=== PATIENT | female | born 1975 | race Caucasian/White ===

== ENCOUNTER 2020-08-07 09:48 | Emergency (ER) | payer OTHER, MEDICAID, SELFPAY ==
[2020-08-07 10:02] VITALS: BP 110/61; PULSE 97; RESP 20; TEMP 36; O2SAT 100; BMI 32.3
--- NOTE | 2020-08-07 10:56 | CT_ITS ---
EXAMINATION: CT ABDOMEN AND PELVIS WITH CONTRAST CLINICAL INFORMATION: 45-year-old female presenting with umbilical/lower abdominal pain. Patient is status post Tummy tuck in [place] 2 weeks ago. COMPARISON: Abdominal MRI 04/11/2014, abdominal ultrasound 04/10/[address] abdomen pelvis 04/07/2014 TECHNIQUE: Multidetector volumetric images were obtained from the superior aspect of the liver through the pubic symphysis following administration 85 mL of Omnipaque 350 intravenous contrast. Sagittal and coronal reformatted images were obtained on the technologist's workstation. Oral contrast: No This CT examination was performed using dose optimization techniques as appropriate, variously including the following: *Automated exposure control *Adjustment of mA and/or kV according to patient size (this includes techniques or standardized protocols for targeted exams where dose is matched to indication/reason for exam; i.e. extremities or head) *Use of iterative reconstruction technique DLP: 783 mGy-cm FINDINGS: Visualized lung bases are well aerated. The liver demonstrates normal size, contour and attenuation. The gallbladder is surgically absent. There is mild intrahepatic biliary ductal dilatation. There is dilatation of the common bile duct measuring up to 1 cm which has been demonstrated on prior imaging from 2013. The pancreas, spleen and adrenal glands are unremarkable. Symmetrically enhancing kidneys. There is no hydronephrosis of either kidney. Normal caliber loops of small and large bowel. Normal appendix. There is diffuse anasarca/subcutaneous edema throughout the central and bilateral abdominal subcutaneous tissues consistent with history of recent tummy tuck procedure. Above the level of the umbilicus there is a well-defined fluid collection containing a small focus of air, measuring 5.5 x 1.5 x 3.75 cm (image 34/89, series 6). There is a second well-defined subcutaneous fluid collection along the right flank which measures approximately 3.8 x 1.9 x 2.5 cm (image 42). A third fairly well-defined lucent collection is noted within the left flank which measures approximately 5.5 x 2.5 x 3.5 cm (image 41). Nonaneurysmal abdominal aorta. The bladder is well-distended and normal in appearance. Unremarkable CT appearance of the uterus. Small amount of free pelvic fluid versus approximately 3 cm cyst of the right adnexa. No inguinal lymphadenopathy. Mild degenerative changes of the spine. CT/CT abdomen pelvis w con IMPRESSION: 1. There are 3 discrete subcutaneous fluid collections as detailed above. These may represent postoperative seromas or developing abscesses. Surgical consultation recommended. 2. Chronic appearing intrahepatic and extrahepatic biliary duct dilatation status post cholecystectomy. 3. Small amount of free pelvic fluid versus approximately 3 cm cyst of the right adnexa.
--- NOTE | 2020-08-07 11:01 | CT_ITS ---
EXAMINATION: CT RIGHT ELBOW WITHOUT CONTRAST CLINICAL INFORMATION: Status post fat removal from left arm with worsening pain COMPARISON: None TECHNIQUE: Multidetector CT imaging of the right elbow was performed without the use of intravenous contrast. Coronal and sagittal reformats are reviewed. This CT examination was performed using dose optimization techniques as appropriate, variously including the following: *Automated exposure control *Adjustment of mA and/or kV according to patient size (this includes techniques or standardized protocols for targeted exams where dose is matched to indication/reason for exam; i.e. extremities or head) *Use of iterative reconstruction technique DLP: 783 mGy-cm FINDINGS: No acute fracture or dislocation. Humeral-ulnar, radiocapitellar and radioulnar alignment is maintained. No cortical destruction, periosteal reaction or intramedullary lucency to suggest osteomyelitis. There is skin thickening and subcutaneous fat stranding along the posteromedial upper arm and medial to the medial humeral epicondyles as well as posterior to the elbow joint. No fluid collections. CT/CT elbow RT w con IMPRESSION: * No acute osseous abnormalities. * Mild skin thickening and subcutaneous fat stranding posteromedial to the upper arm and posterior to the elbow. * No drainable collections.
[2020-08-07] MEDS: 0.9 % Sodium Chloride 1,000 ML 999 ML IVCONT (12:20)
[2020-08-07 12:21] VITALS: RESP 16
[2020-08-07 12:21] LABS: Basophils Percent Auto 0.2 % (0-2); Eosinophils Percent Auto 0.6 % (0-4); Hematocrit 26.7 % (37-47); Hemoglobin 8.4 g/dl (12.0-16.0); Imm Gran Abs Auto 0.03 X10*3/uL (0.00-0.03); Imm Gran Pct Auto 0.5 % (0.0-0.4); Lymphocytes Absolute Auto 1.5 X10*3/uL (1.2-4.9); Lymphocytes Percent Auto 23.4 % (20-40); Mean Corpuscular HGB Conc 31.5 g/dl (31.0-35.0); Mean Corpuscular Hemoglobin 25.8 pg (27.0-33.0); Mean Corpuscular Volume 81.9 fL (80-98); Mean Platelet Volume 11.5 fL (9.4-12.3); Monocytes Absolute Auto 0.4 X10*3/uL (0.1-1.2); Monocytes Percent Auto 6.1 % (2-11); Neutrophils Absolute Auto 4.3 X10*3/uL (2.0-8.3); Neutrophils Percent Auto 69.2 % (45-73); Platelet Count 295 X10*3/uL (160-400); Red Blood Count 3.26 X10*6/uL (4.20-5.50); Red Cell Distribution Width 14.5 % (11.0-16.0); White Blood Count 6.3 X10*3/uL (4.8-10.8)
[2020-08-07] MEDS: Morphine Sulfate 4 MG/ML CARTRIDGE IVPUSH (12:21)
[2020-08-07 12:22] LABS: MANUAL DIFF FLAG NO
[2020-08-07] MEDS: ondansetron HCL 4 MG/2 ML VIAL IVPUSH (12:23)
--- NOTE | 2020-08-07 12:27 | PC.NURSE ---
MEDICATED FOR PAIN
[2020-08-07 12:28] VITALS: BP 130/65; PULSE 89; RESP 16
[2020-08-07 12:41] LABS: Lactic Acid 1.4 mmol/L (0.5-2.0)
[2020-08-07 12:51] LABS: INTERNATIONAL NORM RATIO 1.3 (0.9-1.1); Prothrombin Time 15.6 SEC (10.8-13.0)
[2020-08-07] MEDS: Bacitracin Oint 14 GM TUBE 1 APPL TOPICAL (13:08)
--- NOTE | 2020-08-07 13:09 | ED_ITS ---
HPI - Abdominal Pain General Chief Complaint: Wound/Laceration Stated Complaint: ABD PAIN Time Seen by Provider: 08/07/20 10:35 Source: patient Mode of arrival: ambulatory Limitations: no limitations History of Present Illness HPI narrative: 45yoF c PSHx of Abdominoplasty and liposuction to b/l arms on 07/23/2020 in [place] presenting to the ED c c/o worsening abdominal pain in the umbilical/lower aspect of the abdomen and left upper arm where the suture sites c mild yellow/bloody colored drainage. Denies any fevers or any additional complaints or concerns at this time. Related Data Allergies Allergy/AdvReac Type Severity Reaction Status Date / Time No Known Allergies Allergy Unverified 06/10/20 18:44 [No Known Allergies*] Review of Systems Review of Systems Constitutional : No Weight loss, No Fever, No Chills, No Night Sweats, No Fatigue, NoMalaise ENT/Mouth: No ear pain, No sore throat, No Difficulty swallowing Cardiovascular : No Chest Pain, No SOB, No Dyspnea on Exertion, No Orthopnea, NoEdema, No Palpitations Respiratory : No Cough, No Sputum, No Wheezing, No Dyspnea Gastrointestinal : No Nausea, No Vomiting, No Diarrhea, + abdominal Pain, No Hematochezia, No Melena Genitourinary : No irregular bleeding, No Dysuria, No Urinary Frequency, No Hematuria,No Urinary Incontinence, No Urgency, No Flank Pain Musculoskeletal : No joint pain, No Myalgias, No Joint Swelling Skin : No Skin Lesions, No rash Neuro : No Weakness, No Numbness, No Paresthesias, No Loss of Consciousness, No Dizziness, No Headache Psych : No Social Issues, Heme/Lymph: No Bruising, No Bleeding,No Lymphadenopathy Endocrine : No Polyuria, No Polydipsia, No Temperature Intolerance Yes all other systems are reviewed and are negative Physical Exam Vital Signs: Vital Signs: Last Vital Signs Temp 98.2 F 08/07/20 14:43 Pulse 72 08/07/20 14:43 Resp 14 08/07/20 14:43 BP 105/61 08/07/20 14:43 Pulse Ox 100 08/07/20 14:43 Body Mass Index 32.3 vital signs have been reviewed as normal and appeared to be correct. Blood pressure normal. Heart rate normal. Respiration rate normal. Temperature no rmal. Oxygen saturation normal. Appearance: Alert. Oriented X3. No acute d istress. Head: Normal external exam. Normocephalic. Eyes: PERRLA. EOMI. Conjunctiva and sclera normal. Eyelids normal. ENT: EAC normal. Pharynx normal. Uvula midline. Moist mucous membranes. No trismus noted. No drooling noted. No muffled voice noted. Neck: Normal inspection. Neck supple. FROM. No adenopathy. Thyroid Normal. No meningeal signs. No neck mass noted. CVS: Normal heart rate and rhythm. Heart sound normal. No murmurs noted. Pulses normal throughout. Respiratory: No respiratory distress. Painless inspiration. Breath sounds normal. No wheezes/rales/rhonchi noted. Chest nontender. No accessory muscle usage noted or decreased air movement noted. Abdomen: Firm and diffusely tender even c light palpation. Patient has a large horizontal incision to her suprapubic area with Steri-Strips in place with mild serosanguineous drainage noted, at the umbilical aspect it appears macerated. See pictures below. Bowel sounds normal in all 4 quadrants. No distention noted. No organomegaly noted. Back: No CVA tenderness. Full range of motion noted. Skin: to right upper arm medial aspect there is an incision site that appears macerated with mild surrounding erythema feels warm and tender to palpation and warm to touch. No drainage noted.to left upper arm the incision site appears well healing, firm to touch and mild tender to palpation although no surrounding erythema, or drainage noted at this time. Patient does have bruising noted. Otherwise the rest of the Skin is warm and dry. Normal skin color. Normal skin turgor. No rashes noted. Extremities: No lower extremity edema. Extremities exhibit normal range of motion. Extremities nontender. Neuro: Oriented X 3. No motor deficit. No sensory deficit. Reflexes normal. Course Course Course Narrative: 12:15PM - 45yoF c PSHx of Abdominoplasty and liposuction to b/l arms on 07/23/2020 in [place] presenting to the ED c c/o worsening abdominal pain in the umbilical/lower aspect of the abdomen and left upper arm where the suture sites c mild yellow/bloody colored drainage. - Concern for intra-abdominal process/infection - Plan: Labs, Blood cultures, lactic acid, ct scan of abd/pelvis and right arm c IV contrast. Provide a L of IV fluids, 4 mg of Zofran and 4 mg of morphine provide the Zosyn then re-evaluate. Reevaluation(s) Reevaluation #1: - All labs WNL. Negative serum quant. - CT scan of abd/pelvis c IV contrast revealed 3 discrete subcutaneous fluid collections. These may represent postoperative seromas or developing abscesses. Surgical consultation recommended. - therefore consulting with Dr. Diez and Miguelangel Pereira PA-C at this time from general surgery. Time: 15:59 Reevaluation #2: I consulted with our general surgeon who recommending transferring the patient to Plastic surgery therefore I spoke to Dr. Gonzalez from [facility] the plastic surgeon and he recommended transferring the patient to the ED and he will consult the patient in the ED for further evaluation and treatment and surgery. Patient understands agrees with this plan. Time: 16:24 MDM - Abdominal Pain Medical Records Attestation: I reviewed the patient's medical records. Lab Data Attestation: I reviewed the patient's lab results. Result diagrams: 08/07/20 12:13 08/07/20 12:13 Labs: Lab Results 08/07/20 08/07/20 08/07/20 Range/Units 12:13 12:13 12:13 WBC 6.3 (4.8-10.8) X10*3/uL RBC 3.26 L (4.20-5.50) X10*6/uL Hgb 8.4 L (12.0-16.0) g/dl Hct 26.7 L (37-47) % MCV 81.9 (80-98) fL MCH 25.8 L (27.0-33.0) pg MCHC 31.5 (31.0-35.0) g/dl RDW 14.5 (11.0-16.0) % Plt Count 295 (160-400) X10*3/uL MPV 11.5 (9.4-12.3) fL Immature Gran % (Auto) 0.5 H (0.0-0.4) % Neut % (Auto) 69.2 (45-73) % Lymph % (Auto) 23.4 (20-40) % Isabela % (Auto) 6.1 (2-11) % Eos % (Auto) 0.6 (0-4) % Baso % (Auto) 0.2 (0-2) % Lymph # (Auto) 1.5 (1.2-4.9) X10*3/uL Isabela # (Auto) 0.4 (0.1-1.2) X10*3/uL Eos # (Auto) 0.0 (0.0-0.4) X10*3/uL Baso # (Auto) 0.0 (0.0-0.2) X10*3/uL Abs Immat Gran (auto) 0.03 (0.00-0.03) X10*3/uL Absolute Neuts (auto) 4.3 (2.0-8.3) X10*3/uL Absolute Nucleated RBC 0.000 (0.0-0.012) X10*3/uL Nucleated RBC % (auto) 0.0 (0.0-0.2) /100WBC PT 15.6 H (10.8-13.0) SEC INR 1.3 H (0.9-1.1) Sodium 139 (135-145) mmol/L Potassium 4.2 (3.3-5.1) mmol/l Chloride 107 (96-108) mmol/L Carbon Dioxide 20 L (22-29) mmol/L Anion Gap 16 (12-20) BUN 10 (9-16) mg/dL Creatinine 0.60 (0.5-1.4) mg/dL Estim Creat Clear Calc 112.7 Estimated GFR > 60 Random Glucose 81 (60-115) mg/dL Lactic Acid (0.5-2.0) mmol/L Calcium 8.1 L (8.4-10.2) mg/dL Magnesium 2.2 (1.6-2.6) mg/dL Total Bilirubin 0.6 (0.0-1.0) mg/dL Direct Bilirubin 0.2 (0.0-0.5) mg/dL AST 14 (5-31) U/L ALT 9 (0-31) U/L Alkaline Phosphatase 58 (39-117) U/L Total Protein 6.9 (6.5-8.0) g/dL Albumin 4.0 (3.5-5.0) g/dL Beta HCG, Quant < 2 mIU/mL 11/14/20 11/14/20 Range/Units 12:13 12:13 WBC (4.8-10.8) X10*3/uL RBC (4.20-5.50) X10*6/uL Hgb (12.0-16.0) g/dl Hct (37-47) % MCV (80-98) fL MCH (27.0-33.0) pg MCHC (31.0-35.0) g/dl RDW (11.0-16.0) % Plt Count (160-400) X10*3/uL MPV (9.4-12.3) fL Immature Gran % (Auto) (0.0-0.4) % Neut % (Auto) (45-73) % Lymph % (Auto) (20-40) % Isabela % (Auto) (2-11) % Eos % (Auto) (0-4) % Baso % (Auto) (0-2) % Lymph # (Auto) (1.2-4.9) X10*3/uL Isabela # (Auto) (0.1-1.2) X10*3/uL Eos # (Auto) (0.0-0.4) X10*3/uL Baso # (Auto) (0.0-0.2) X10*3/uL Abs Immat Gran (auto) (0.00-0.03) X10*3/uL Absolute Neuts (auto) (2.0-8.3) X10*3/uL Absolute Nucleated RBC (0.0-0.012) X10*3/uL Nucleated RBC % (auto) (0.0-0.2) /100WBC PT (10.8-13.0) SEC INR (0.9-1.1) Sodium (135-145) mmol/L Potassium (3.3-5.1) mmol/l Chloride (96-108) mmol/L Carbon Dioxide (22-29) mmol/L Anion Gap (12-20) BUN (9-16) mg/dL Creatinine (0.5-1.4) mg/dL Estim Creat Clear Calc Estimated GFR Random Glucose (60-115) mg/dL Lactic Acid 1.4 (0.5-2.0) mmol/L Calcium (8.4-10.2) mg/dL Magnesium (1.6-2.6) mg/dL Total Bilirubin (0.0-1.0) mg/dL Direct Bilirubin (0.0-0.5) mg/dL AST (5-31) U/L ALT (0-31) U/L Alkaline Phosphatase (39-117) U/L Total Protein (6.5-8.0) g/dL Albumin (3.5-5.0) g/dL Beta HCG, Quant Cancelled mIU/mL Imaging Data CT scan - abdomen: Attestation: I personally reviewed and interpreted this imaging study as follows: Radiologist's impression: FINDINGS: Visualized lung bases are well aerated. The liver demonstrates normal size, contour and attenuation. The gallbladder is surgically absent. There is mild intrahepatic biliary ductal dilatation. There is dilatation of the common bile duct measuring up to 1 cm which has been demonstrated on prior imaging from 2013. The pancreas, spleen and adrenal glands are unremarkable. Symmetrically enhancing kidneys. There is no hydronephrosis of either kidney. Normal caliber loops of small and large bowel. Normal appendix. There is diffuse anasarca/subcutaneous edema throughout the central and bilateral abdominal subcutaneous tissues consistent with history of recent tummy tuck procedure. Above the level of the umbilicus there is a well-defined fluid collection containing a small focus of air, measuring 5.5 x 1.5 x 3.75 cm (image 34/89, series 6). There is a second well-defined subcutaneous fluid collection along the right flank which measures approximately 3.8 x 1.9 x 2.5 cm (image 42). A third fairly well-defined lucent collection is noted within the left flank which measures approximately 5.5 x 2.5 x 3.5 cm (image 41). Nonaneurysmal abdominal aorta. The bladder is well-distended and normal in appearance. Unremarkable CT appearance of the uterus. Small amount of free pelvic fluid versus approximately 3 cm cyst of the right adnexa. No inguinal lymphadenopathy. Mild degenerative changes of the spine. CT/CT abdomen pelvis w con IMPRESSION: 1. There are 3 discrete subcutaneous fluid collections as detailed above. These may represent postoperative seromas or developing abscesses. Surgical consultation recommended. 2. Chronic appearing intrahepatic and extrahepatic biliary duct dilatation status post cholecystectomy. 3. Small amount of free pelvic fluid versus approximately 3 cm cyst of the right adnexa. ct right arm : Attestation: I personally reviewed and interpreted this imaging study as follows: Radiologist's impression: FINDINGS: No acute fracture or dislocation. Humeral-ulnar, radiocapitellar and radioulnar alignment is maintained. No cortical destruction, periosteal reaction or intramedullary lucency to suggest osteomyelitis. There is skin thickening and subcutaneous fat stranding along the posteromedial upper arm and medial to the medial humeral epicondyles as well as posterior to the elbow joint. No fluid collections. CT/CT elbow RT w con IMPRESSION: * No acute osseous abnormalities. * Mild skin thickening and subcutaneous fat stranding posteromedial to the upper arm and posterior to the elbow. * No drainable collections. Critical Care Time Critical Care Time Critical Care Time: Yes Total Critical Care Time: 60 Attestation: I personally attest to this time spent taking care of the patient Discharge Plan Discharge Clinical Impression: Post-operative complication, Post op infection, S/P abdominoplasty Patient Disposition: [facility] Print Language: Cymro [facility] Past Medical History Attestation statement: The following information was validated with the patient. Surgical History Hx laparoscopic cholecystectomy Social History Social History Alcohol intake: never Smoking Status: Never smoker Use of substances other than those prescribed or required for medical reasons: No Advance Directives: No Advance Directives Information Provided: No
[2020-08-07] MEDS: Piperacillin Sodium/Tazobactam 3.375 GM in 0.9 % Sodium Chloride 50 ML IV (14:42)
[2020-08-07 14:43] VITALS: BP 105/61; PULSE 72; RESP 14; TEMP 36.8; O2SAT 100
[2020-08-07 14:50] LABS: Alanine Aminotransferase 9 U/L (0-31); Alkaline Phosphatase 58 U/L (39-117); Anion Gap 16 (12-20); Aspartate Amino Transferase 14 U/L (5-31); Bilirubin Direct 0.2 mg/dL (0.0-0.5); Bilirubin Total 0.6 mg/dL (0.0-1.0); Blood Urea Nitrogen 10 mg/dL (9-16); Calcium 8.1 mg/dL (8.4-10.2); Carbon Dioxide 20 mmol/L (22-29); Chloride 107 mmol/L (96-108); Creatinine Clr Calc Pharmacy 112.7; Estimated Glomerular Filt Rate > 60; Glucose Random 81 mg/dL (60-115); Magnesium 2.2 mg/dL (1.6-2.6); Potassium 4.2 mmol/l (3.3-5.1); Sodium 139 mmol/L (135-145); Total Protein 6.9 g/dL (6.5-8.0)
[2020-08-07 14:56] LABS: HCG Quantitative < 2 mIU/mL
[2020-08-07] MEDS: iohexoL 350 MG/ML 100 ML INFUS..BTL IV (15:23)
[2020-08-07 16:40] VITALS: BP 108/59; PULSE 77; RESP 6; TEMP 36.6
[2020-08-07 16:59] LABS: COVID-19 Test Negative (Negative)
--- NOTE | 2020-08-07 17:33 | PC.NURSE ---
REPORT CALLED TO ANTONIO GOMES AT THE [facility] ED
== END 2020-08-07 18:01 | disposition short-term general hospital (02) ==
PROVIDERS: Physician Assistant Medical; Emergency Provider Emergency Medicine; PCP Family Medicine
DX: L76.34 Postprocedural seroma of skin and subcutaneous tissue following other procedure (principal); R10.9 Unspecified abdominal pain; Z79.899 Other long term (current) drug therapy
CPT/HCPCS: 36415; 73201; 74177; 80048; 80076; 83605; 83735; 84702; 85025; 85610; 87040; 87635; 96361; 96365; 96375; 99285; 99291; J2270; J2405; J2543; Q9967

== ENCOUNTER 2020-10-02 21:31 | Emergency (ER) | payer OTHER, MEDICAID, SELFPAY ==
[2020-10-02 21:33] VITALS: BP 137/78; PULSE 78; RESP 18; TEMP 37.7; O2SAT 100; BMI 29.5
[2020-10-02 22:00] VITALS: BP 137/78; PULSE 78; RESP 18; TEMP 37.7; O2SAT 100
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
[2020-10-03] VITALS: BP 134/84; PULSE 78; RESP 18; O2SAT 100
[2020-10-03 00:34] LABS: Basophils Percent Auto 0.3 % (0-2); Eosinophils Absolute Auto 0.1 X10*3/uL (0.0-0.4); Eosinophils Percent Auto 1.1 % (0-4); Hematocrit 27.1 % (37-47); Hemoglobin 8.1 g/dl (12.0-16.0); Imm Gran Abs Auto 0.01 X10*3/uL (0.00-0.03); Imm Gran Pct Auto 0.2 % (0.0-0.4); Lymphocytes Absolute Auto 2.1 X10*3/uL (1.2-4.9); Lymphocytes Percent Auto 34.7 % (20-40); MANUAL DIFF FLAG NO; Mean Corpuscular HGB Conc 29.9 g/dl (31.0-35.0); Mean Corpuscular Hemoglobin 22.8 pg (27.0-33.0); Mean Corpuscular Volume 76.1 fL (80-98); Mean Platelet Volume 11.3 fL (9.4-12.3); Monocytes Absolute Auto 0.4 X10*3/uL (0.1-1.2); Monocytes Percent Auto 6.2 % (2-11); Neutrophils Absolute Auto 3.6 X10*3/uL (2.0-8.3); Neutrophils Percent Auto 57.5 % (45-73); Platelet Count 215 X10*3/uL (160-400); Red Blood Count 3.56 X10*6/uL (4.20-5.50); Red Cell Distribution Width 15.9 % (11.0-16.0); White Blood Count 6.2 X10*3/uL (4.8-10.8)
[2020-10-03 00:41] LABS: INTERNATIONAL NORM RATIO 1.2 (0.9-1.1); Prothrombin Time 14.7 SEC (10.8-13.0)
[2020-10-03 00:44] LABS: Partial Thromboplastin Time 27.2 SEC (24.1-38.0)
--- NOTE | 2020-10-03 00:52 | PC.NURSE ---
UNABLE TO OBTAIN VASCULAR ACCESS AFTER 3 ATTEMPTS. MD AWARE AND DECISION WAS TO DISCONTINUE PLACEMENT OF iv. MD COMPLETED INTERNAL EXAM. PATIENT TOLERATED THE PROCEDURE WELL. CULTURES SENT
[2020-10-03] MEDS: Ibuprofen 600 MG TABLET PO (01:01)
[2020-10-03 01:04] LABS: Alanine Aminotransferase 8 U/L (0-31); Alkaline Phosphatase 37 U/L (39-117); Anion Gap 11 (12-20); Aspartate Amino Transferase 11 U/L (5-31); Bilirubin Total < 0.2 mg/dL (0.0-1.0); Blood Urea Nitrogen 9 mg/dL (9-16); Carbon Dioxide 23 mmol/L (22-29); Chloride 106 mmol/L (96-108); Creatinine Clr Calc Pharmacy 104.1; Estimated Glomerular Filt Rate > 60; Glucose Random 97 mg/dL (60-115); Potassium 4.2 mmol/l (3.3-5.1); Sodium 136 mmol/L (135-145); Total Protein 6.7 g/dL (6.5-8.0)
[2020-10-03 01:09] LABS: HCG Quantitative < 2 mIU/mL
[2020-10-03 01:20] LABS: Glucose Urine UA NEG (NEG); Leukocyte Esterase Urine NEG (NEG); Nitrite Urine NEG (NEG); Urine Blood 3+ (NEG); Urine Ketones NEG (NEG); Urine Protein NEG (NEG-TRACE)
[2020-10-03 01:21] LABS: Appearance Urine HAZY; Color Urine PINK
[2020-10-03 01:28] LABS: Bacteria Urine 1+ /LPF; RBC Urine 50-75 /HPF (0); Squamous Epithelial Cell Urine 1+ /LPF
[2020-10-03] MEDS: oxyCODONE HCl Immed Release 5 MG TABLET PO (01:48)
== END 2020-10-03 03:23 | disposition home or self-care (01) ==
PROVIDERS: Emergency Provider Emergency Medicine Emergency Medical Services
DX: N92.1 Excessive and frequent menstruation with irregular cycle (principal); R10.2 Pelvic and perineal pain; Z90.49 Acquired absence of other specified parts of digestive tract
CPT/HCPCS: 36415; 80053; 81001; 84702; 85025; 85610; 85730; 99284

== ENCOUNTER 2022-06-07 16:01 | Emergency (ER) | payer OTHER, MEDICAID, SELFPAY ==
--- NOTE | 2022-06-07 09:28 | ECG_ITS ---
Test Reason : abd pain Blood Pressure : / mmHG Vent. Rate : 069 BPM Atrial Rate : 069 BPM P-R Int : 156 ms QRS Dur : 070 ms QT Int : 420 ms P-R-T Axes : 048 049 054 degrees QTc Int : 450 ms Normal sinus rhythm Normal ECG No previous ECGs available Referred By: Sheila Valentine Electronically Signed By:GUILLERMO VALERA
[2022-06-07 16:29] VITALS: BP 130/69; PULSE 75; RESP 18; TEMP 36.7; O2SAT 100; BMI 28.7
[2022-06-07 17:53] LABS: Hematocrit 30.6 % (37.0-47.0); Hemoglobin 10.1 g/dl (12.0-16.0); Mean Corpuscular Hemoglobin 26.9 pg (27.0-33.0); Mean Corpuscular Volume 81.4 fL (80.0-98.0); Mean Platelet Volume 11.3 fL (9.4-12.3); Platelet Count 204 X10*3/uL (160-400); Red Blood Count 3.76 X10*6/uL (4.20-5.50); Red Cell Distribution Width 13.5 % (11.0-16.0); White Blood Count 7.6 X10*3/uL (4.8-10.8)
[2022-06-07 18:07] LABS: Anion Gap 16 (12-20); Blood Urea Nitrogen 10 mg/dL (9-16); Calcium 9.1 mg/dL (8.4-10.2); Carbon Dioxide 23 mmol/L (22-29); Chloride 104 mmol/L (96-108); Creatinine Clr Calc Pharmacy 94.1; Estimated Glomerular Filt Rate > 60; Glucose Random 94 mg/dL (60-115); Potassium 3.9 mmol/L (3.3-5.1); Sodium 139 mmol/L (135-145)
[2022-06-07 18:15] LABS: HCG Quantitative < 2 mIU/mL
[2022-06-07 20:51] LABS: Appearance Urine Clear; Color Urine Red; Glucose Urine UA Negative (Negative); Leukocyte Esterase Urine Small (1+) (Negative); Nitrite Urine Negative (Negative); Specific Gravity - Urine <= 1.005 (1.005-1.025); UMIC TRIGGER UACC YES; Urine Blood Large (3+) (Negative); Urine Ketones Negative (Negative); Urine Protein 30 (1+) mg/dL (Neg-Trace)
[2022-06-07 20:52] LABS: Bacteria Urine None Seen (None Seen); Hyaline Casts Urine 0-2 /LPF (0-2); RBC Urine >20 /HPF (0-2); Squamous Epithelial Cell Urine 0-2 /HPF (0-2); UACC Culture Trigger YES; WBC Urine 0-5 /HPF (0-5)
[2022-06-07 21:11] VITALS: BP 121/83; PULSE 97; RESP 17; O2SAT 99
[2022-06-07] MEDS: Acetaminophen 325 MG TABLET 650 MG PO (22:13)
--- NOTE | 2022-06-08 00:30 | ED_ITS ---
HPI - Female Genitourinary General Chief complaint: Vaginal Bleeding Stated complaint: Vag Bleed W/Pain Time Seen by Provider: 06/07/22 16:35 History of Present Illness HPI Narrative: Patient is a 47-year-old female presents today with having vaginal bleeding ongoing for the last 10 days. Patient claims she soaks a few had today. No fever no chills no chest pain or shortness of breath no nausea no vomiting. Positive lower abdominal cramping. Positive clots. Patient also had another episode of bleeding in early April. Patient being follow by OB at [facility]. No history of bleeding disorder. No history of being on blood thinners. Related Data Previous Rx's Medication Instructions Recorded oxycodone 5 mg tablet 5 mg PO Q4H PRN pain #14 tabs 10/03/20 Allergies Allergy/AdvReac Type Severity Reaction Status Date / Time No Known Allergies Allergy Verified 10/03/20 00:51 [No Known Allergies*] Review of Systems Review of Systems: No chest pain or shortness breath no nausea no vomiting Yes all other systems are reviewed and are negative [facility] Past Medical History Attestation statement: The following information was validated with the patient. Surgical History Hx laparoscopic cholecystectomy Social History Social History Alcohol intake: unknown Physical Exam Vital Signs: Vital Signs: Last Vital Signs Temp 98.1 F 06/07/22 16:29 Pulse 97 06/07/22 21:11 Resp 17 06/07/22 21:11 BP 121/83 06/07/22 21:11 Pulse Ox 99 06/07/22 21:11 O2 Del Method 06/07/22 21:11 BMI result Body Mass Index 28.7 Appearance: Alert. Oriented X3. No acute distress. Eyes: Pupils equal, round and reactive to light. ENT: Pharynx normal. Neck: Normal inspection. Neck supple. No lymph nodes noted. No crepitus CVS: Normal heart rate and rhythm. Pulses normal. Normal S1 and S2 Respiratory: No respiratory distress. Breath sounds normal. No Wheezing. No rales Abdomen: Soft and nontender. No rigidity. No distention. good BS x4 Skin: Skin warm and dry. Normal skin color. Normal skin turgor. Extremities: No lower extremity edema. Neurovascular intact to all extremities. No Lacerations. No Rash Neuro: Oriented X 3. No motor deficit. No sensory deficit. Moving all extermities. No slurred speech Patient refused pelvic exam MDM - Female Genitourinary MDM Narrative Medical decision making narrative: Patient's hemoglobin is 10.1. This is actually better than baseline. Patient did not have any focal weakness. Neurologically intact. Patient is not on blood thinners. Explained to patient the need for possible biopsy prior to being prescribed medication to stop the bleeding and needs close follow-up with OBGYN. Patient states understanding. At this time did not want a state's attorney exam. In stable condition with discharge home follow-up with OB. Medical Records Attestation: I reviewed the patient's medical records. Lab Data Attestation: I reviewed the patient's lab results. Result diagrams: 06/07/22 17:44 06/07/22 17:44 Labs: Lab Results 06/07/22 06/07/22 06/07/22 Range/Units 17:44 17:44 17:44 WBC 7.6 (4.8-10.8) X10*3/uL RBC 3.76 L (4.20-5.50) X10*6/uL Hgb 10.1 L (12.0-16.0) g/dl Hct 30.6 L (37.0-47.0) % MCV 81.4 (80.0-98.0) fL MCH 26.9 L (27.0-33.0) pg MCHC 33.0 (31.0-35.0) g/dl RDW 13.5 (11.0-16.0) % Plt Count 204 (160-400) X10*3/uL MPV 11.3 (9.4-12.3) fL Absolute Nucleated RBC 0.000 (0.0-0.012) X10*3/uL Nucleated RBC % (auto) 0.0 (0.0-0.2) /100WBC Sodium 139 (135-145) mmol/L Potassium 3.9 (3.3-5.1) mmol/L Chloride 104 (96-108) mmol/L Carbon Dioxide 23 (22-29) mmol/L Anion Gap 16 (12-20) BUN 10 (9-16) mg/dL Creatinine 0.69 (0.5-1.4) mg/dL Estim Creat Clear Calc 94.1 Estimated GFR > 60 Random Glucose 94 (60-115) mg/dL Calcium 9.1 D (8.4-10.2) mg/dL Beta HCG, Quant < 2 mIU/mL Urine Color Urine Appearance Urine pH (5.0-9.0) Ur Specific [place] (1.005-1.025) Urine Protein (Neg-Trace) mg/dL Urine Glucose (UA) (Negative) mg/dL Urine Ketones (Negative) mg/dL Urine Blood (Negative) Urine Nitrite (Negative) Ur Leukocyte Esterase (Negative) Urine RBC (0-2) /HPF Urine WBC (0-5) /HPF Ur Squamous Epith Cells (0-2) /HPF Urine Bacteria (None Seen) Hyaline Casts (0-2) /LPF 06/07/22 Range/Units 20:15 WBC (4.8-10.8) X10*3/uL RBC (4.20-5.50) X10*6/uL Hgb (12.0-16.0) g/dl Hct (37.0-47.0) % MCV (80.0-98.0) fL MCH (27.0-33.0) pg MCHC (31.0-35.0) g/dl RDW (11.0-16.0) % Plt Count (160-400) X10*3/uL MPV (9.4-12.3) fL Absolute Nucleated RBC (0.0-0.012) X10*3/uL Nucleated RBC % (auto) (0.0-0.2) /100WBC Sodium (135-145) mmol/L Potassium (3.3-5.1) mmol/L Chloride (96-108) mmol/L Carbon Dioxide (22-29) mmol/L Anion Gap (12-20) BUN (9-16) mg/dL Creatinine (0.5-1.4) mg/dL Estim Creat Clear Calc Estimated GFR Random Glucose (60-115) mg/dL Calcium (8.4-10.2) mg/dL Beta HCG, Quant mIU/mL Urine Color Red A Urine Appearance Clear Urine pH 7.0 (5.0-9.0) Ur Specific [place] <= 1.005 (1.005-1.025) Urine Protein 30 (1+) H (Neg-Trace) mg/dL Urine Glucose (UA) Negative (Negative) mg/dL Urine Ketones Negative (Negative) mg/dL Urine Blood Large (3+) H (Negative) Urine Nitrite Negative (Negative) Ur Leukocyte Esterase Small (1+) H (Negative) Urine RBC >20 H (0-2) /HPF Urine WBC 0-5 (0-5) /HPF Ur Squamous Epith Cells 0-2 (0-2) /HPF Urine Bacteria None Seen (None Seen) Hyaline Casts 0-2 (0-2) /LPF Discharge Plan Discharge Clinical Impression: Vaginal bleeding Patient Disposition: Home, Self-Care Instructions: Menorrhagia (ED) Prescriptions: No Action oxycodone 5 mg tablet 5 mg PO Q4H PRN (Reason: pain) Qty: 14 0RF Rx Instructions: Patient may request partial fill Referrals: Clifford Cavanaugh MD [Physician] -
[2022-06-08 00:56] VITALS: BP 123/78; PULSE 71; RESP 16; TEMP 36.6; O2SAT 99
== END 2022-06-08 00:59 | disposition home or self-care (01) ==
PROVIDERS: Physician Assistant; Emergency Provider Emergency Medicine Emergency Medical Services; PCP Family Medicine
DX: N93.8 Other specified abnormal uterine and vaginal bleeding (principal); R10.9 Unspecified abdominal pain; Z79.899 Other long term (current) drug therapy
CPT/HCPCS: 36415; 80048; 81001; 84702; 85027; 87086; 87147; 93005; 99283; 99284